=== PATIENT | male | born 1990 | race Caucasian/White ===

== ENCOUNTER 2019-01-18 08:41 | Emergency (ER) | payer MEDICAID ==
[~2019-01-18] VITALS: Ht 180.3 cm; Wt 96.6 kg
[~2019-01-18 08:41] MED LIST: ACET500C5 PO; BEN25 PO; CEPH-443 PO; IBUP800T48 PO; LORA10TA3 PO; SULF1TAB31 PO
[2019-01-18 08:46] VITALS: BP 149/71; PULSE 99; RESP 17; Ht 180.3 cm; Wt 96.6 kg
[2019-01-18] MEDS ORDERED: TRAM50TA2 PO (09:55)
[2019-01-18] MEDS ORDERED: ONDA4TAB8 PO (09:55)
--- NOTE | 2019-01-18 09:59 | ERD ---
ER Documentation Chief Complaint Chief Complaint head/neck pain with vision changes x 4 days post slip/fall b -ko HPI 28-year-old male with no reported past medical or surgical history presents with head and neck pain and CHRISTIANSON over the past 4 days. States on Thursday he was working on a car with his family member when the smart of the car slipped. He was able to get away from the falling smart of the but slipped backwards hitting the back of his head. States had a small bump to the back of the head at the time but denies LOC. Had a single episode of vomiting 1 hour after the incident but no vomiting since that time but still with intermittent nausea which has improved. States he has a little bit of photophobia which is improved over the past couple of days. Has had intermittent dizziness especially going from sitti ng to standing position. He otherwise denies worsening headache, further episodes of vomiting, blurry vision, chest pain, shortness of breath. He is most concerned about the nausea. Asking for a letter for his job. At time of evaluation patient is alert and oriented x3 and neurovascularly intact. ROS All systems reviewed and are negative except as per history of present illness. Medications Home Meds Active Scripts Acetaminophen* (Tylophen*) 500 Mg Capsule, 1 CAP PO Q6H PRN for PAIN AND OR ELEVATED TEMP, #20 CAP Prov:NIA GARSIA-C 01/18/19 Ondansetron Hcl* (Zofran*) 4 Mg Tablet, 4 MG PO Q6H for NAUSEA AND/OR VOMITING, #30 TAB Prov:NIA GARSIA-C 01/18/19 Acetaminophen* (Tylophen*) 500 Mg Capsule, 1 CAP PO Q6H PRN for PAIN AND OR ELEVATED TEMP, #20 CAP Prov:PASILABAN,KLAR F 10/16/17 Ibuprofen* (Motrin*) 800 Mg Tab, 800 MG PO Q8 PRN for PAIN AND OR ELEVATED TEMP, #30 TAB Prov:PASILABAN,AUGIEAR F 10/16/17 Diphenhydramine Hcl* (Benadryl*) 25 Mg Cap, 25 MG PO Q6 PRN for ITCHING/RASH, # 30 TAB Prov:PASILABAN,KLAR F 10/16/17 Loratadine* (Loratadine*) 10 Mg Tablet, 10 MG PO DAILY, #30 TAB Prov:PASILABAN,KLAR F 10/16/17 Sulfamethoxazole/Trimethoprim* (Bactrim Ds* Tablet) 1 Each Tablet, 1 TAB PO BID, #14 TAB Prov:MILLIE RENO 10/16/17 Cephalexin* (Keflex*) 500 Mg Capsule, 500 MG PO TID for 7 Days, CAP Prov:MILLIE RENO 10/16/17 Discontinued Scripts Tramadol HCl (Tramadol HCl) 50 Mg Tablet, 50 MG PO Q6 PRN for PAIN, #20 TAB Prov:NIA GARSIA PA-C 01/18/19 Allergies Allergies: Coded Allergies: No Known Allergy (Unverified , 10/16/17) PMhx/Soc History of Surgery: No Hx Neurological Disorder: No Hx Respiratory Disorders: No Hx Cardiac Disorders: No Hx Psychiatric Problems: Yes (anxiety and depression) Hx Miscellaneous Medical Probl: No Hx Alcohol Use: Yes Hx Substance Use: Yes Hx Tobacco Use: Yes Smoking Status: Never smoker FmHx Family History: No diabetes, No coronary disease, No other Physical Exam Vitals Vital Signs Date Temp Pulse Resp B/P (MAP) Pulse Ox O2 O2 Flow FiO2 Time Delivery Rate 01/18/19 98.2 99 17 149/71 98 08:46 (97) Physical Exam I have reviewed the triage vital signs. Const: Well nourished, well developed, appears stated age Eyes: PERRL, no conjunctival injection HENT: NCAT, Neck supple without meningismus CV: RRR, Warm, well-perfused extremities RESP: CTAB, Unlabored respiratory effort GI: soft, non-tender, non-distended, no masses MSK: No gross deformities appreciated. Normal gait and coordination Skin: Warm, dry. No rashes Neuro: grossly non focal Psych: Appropriate mood and affect. Procedures/MDM 28-year-old male presents with symptoms consistent with concussion. He has no red flag symptoms which would warrant further emergent neurological or other medical workup. He is alert and oriented and appropriate with a reassuring logical exam. He likely needs symptomatic management for postconcussive symptoms. Patient has been given instructions on symptomatic management of postconcussive symptoms. He is stable for discharge with appropriate outpatient follow-up. Plan: Zofran, Tylenol for pain DISPOSITION PLAN: We discussed follow up with the patient's primary care doctor within 24 to 48 hours. Patient counseled regarding my diagnostic impression and care plan. Prior to discharge all questions answered. Pt agrees with treatment plan and unders tands strict return precautions. Precautionary instructions provided including instructions to return to the ER if not improving or for any worsening or changing symptoms or concerns. Departure Diagnosis: Primary Impression: Concussion Additional Impression: Acute headache Condition: Stable Patient Instructions: After a Concussion, Concussion Additional Instructions: Call your primary care doctor TOMORROW for an appointment during the next 2-3 days.See the doctor sooner or return here if your condition worsens before your appointment time. NIA GARSIA PA-C Jan 18, 2019 09:59
[2019-01-18] MEDS ORDERED: ACET500C5 PO (10:01)
== END 2019-01-18 10:48 | disposition home or self-care (01) ==
LOC: FTE 08:41
DX: S06.0X0A Concussion without loss of consciousness, initial encounter (principal); W20.8XXA Other cause of strike by thrown, projected or falling object, initial encounter; Y92.9 Unspecified place or not applicable; Z87.891 Personal history of nicotine dependence
CPT/HCPCS: 99283

== ENCOUNTER 2019-01-29 09:31 | Emergency (ER) | payer MEDICAID ==
[~2019-01-29] VITALS: Ht 180.3 cm; Wt 98.1 kg
[~2019-01-29 09:31] MED LIST changes: +ONDA4TAB8 PO
[2019-01-29 09:38] VITALS: Ht 180.3 cm; Wt 98.1 kg
[2019-01-29] MEDS ORDERED: ONDANSETRON (ODT) 4 MG TAB ODT STA (10:38)
[2019-01-29] MEDS ORDERED: ACETAMINOPHEN 325 MG TAB PO ONE (11:00)
[2019-01-29] MEDS ORDERED: LORAZEPAM 1 MG TAB PO ONE (13:30)
[2019-01-29 13:35] VITALS: BP 155/89; PULSE 91; RESP 20
--- NOTE | 2019-02-04 17:06 | ERD ---
ER Documentation Chief Complaint Chief Complaint C/O DIZZINESS , BLURRY VISION S/P FALL X 2 WEEKS AGO HPI 28-year-old male patient with no significant past medical history presents to the ED complaining of dizziness, blurry vision, 2 weeks ago after having a head injury. States that he was working on his car, stepped back and fell backwards, hitting his head on concrete. Reports that he felt like he had lost consciousness. States that he now has blurry vision. Denies wearing any new glasses or contacts. Patient also requesting for his anxiety medications. Denies any wheezing, chest pain, fever, neck stiffness. ROS All systems reviewed and are negative except as per history of present illness. Medications Home Meds Active Scripts Acetaminophen* (Tylophen*) 500 Mg Capsule, 1 CAP PO Q6H PRN for PAIN AND OR ELEVATED TEMP, #20 CAP Prov:NIA GARSIA-C 01/18/19 Ondansetron Hcl* (Zofran*) 4 Mg Tablet, 4 MG PO Q6H for NAUSEA AND/OR VOMITING, #30 TAB Prov:NIA GARSIA PA-C 01/18/19 Acetaminophen* (Tylophen*) 500 Mg Capsule, 1 CAP PO Q6H PRN for PAIN AND OR ELEVATED TEMP, #20 CAP Prov:MILLIE RENO 10/16/17 Ibuprofen* (Motrin*) 800 Mg Tab, 800 MG PO Q8 PRN for PAIN AND OR ELEVATED TEMP, #30 TAB Prov:PASILAMILLIE LR F 10/16/17 Diphenhydramine Hcl* (Benadryl*) 25 Mg Cap, 25 MG PO Q6 PRN for ITCHING/RASH, #30 TAB Prov:PASMILLIE HARO 10/16/17 Loratadine* (Loratadine*) 10 Mg Tablet, 10 MG PO DAILY, #30 TAB Prov:PASILAMILLIE LR 10/16/17 Sulfamethoxazole/Trimethoprim* (Bactrim Ds* Tablet) 1 Each Tablet, 1 TAB PO BID, #14 TAB Prov:PASILAMILLIE LR F 10/16/17 Cephalexin* (Keflex*) 500 Mg Capsule, 500 MG PO TID for 7 Days, CAP Prov:PASILAMILLIE LR F 10/16/17 Allergies Allergies: Coded Allergies: No Known Allergy (Unverified , 10/16/17) PMhx/Soc Medical and Surgical Hx: pt denies Surgical Hx History of Surgery: No Hx Neurological Disorder: No Hx Respiratory Disorders: No Hx Cardiac Disorders: No Hx Psychiatric Problems: Yes (anxiety and depression) Hx Miscellaneous Medical Probl: No Hx Alcohol Use: Yes Hx Substance Use: Yes Hx Tobacco Use: Yes Smoking Status: Current every day smoker FmHx Family History: No diabetes, No coronary disease Physical Exam Vitals Temp: 98.1 Pulse: 87 SBP 154 DBP 94 Resp 18 O2 98 Physical Exam Const: [id number], well-nourished. In no acute distress. Head: Atraumatic, normocephalic Eyes: Normal Conjunctiva without injection ENT: Normal external ear, nose and mouth. Neck: Full range of motion. No meningismus. Resp: Clear to auscultation bilaterally. No wheezing, rhonchi, rales, or crackles. No accessory muscle use. No retractions. Cardio: Regular rate and rhythm, no murmurs Skin: No petechiae or rashes Back: No midline tenderness. No CVA tenderness. Ext: No cyanosis, or edema. Cap refill less than 2 seconds. Distal pulses intact bilaterally. Neur: Awake and alert. Normal gait and coordination. Muscle strength 5/5. Sensation intact bilaterally. Psych: Normal Mood and Affect Results 24 hrs Current Medications Medications Dose Sig/Kj Start Time Status Last (Trade) Ordered Route PRN Stop Time Admin Dose Reason Admin Ondansetron 4 mg ONCE STAT 01/29/19 DC 01/29/19 HCl (Zofran ODT 10:38 10:45 Odt) 01/29/19 10:40 650 mg ONCE ONCE 01/29/19 DC 01/29/19 Acetaminophen PO 11:00 10:45 (Tylenol 01/29/19 11:01 Tab) Lorazepam 1 mg ONCE ONCE 01/29/19 DC 01/29/19 (Ativan) PO 13:30 13:28 01/29/19 13:31 Procedures/MDM 28-year-old male patient with no significant past medical history presents ED complaining of dizziness, blurry vision status post after falling, 2 weeks ago. Patient is afebrile and nontoxic-appearing. CT brain and soft tissue ultrasound was ordered to further evaluate patient as well as ultrasound. IMPRESSION: Normal. IMPRESSION: No evidence of intracranial masses hemorrhages or midline shift. Visual acuity: Bilateral 20/100 L 20/100 R 20/70 Patient does not have any eye pain or redness. Strictly instructed patient to follow up with an heat treat operator within 24 hours. Low suspicion for intracranial bleed, subarachnoid hemorrhage, meningitis, TIA, stroke, subdural hematoma, epidural hematoma, or other emergent conditions. Patient's ocular symptoms have stabilized while they have been evaluated in the department and are appropriate for outpatient work up. Low suspicion for ruptured globe, retinal detachment, periorbital cellulitis, acute angle closure glaucoma, deep space infection, iritis, traumatic hyphema, conjunctivitis, subconjunctival hemorrhage, corneal abrasion, corneal ulcer, pterygium, hypopyon, blepharitis, hordeolum, chalazion, or other emergent conditions. Patient ordered Ativan here in the ED - patient requested for Xanax. I educated patient that Xanax is highly addictive. Patient has not taken this for months. High suspicion for drug seeking behavior. Diagnosis: Head Injury Discharge medications: Patient has a prescription for Zofran and Tylenol. Follow up with primary care physician in 1-2 days. Instructed patient to return to the ED sooner for any worsening symptoms. Patient's questions were answered. Patient is hemodynamically stable. Patient understood and agreed with discharge plan. Patient discharged stable. Disclaimer: Inadvertent spelling and grammatical errors are likely due to EHR/dictation software use and do not reflect on the overall quality of patient care. Also, please note that the electronic time recorded on this note does not necessarily reflect the actual time of the patient encounter. Departure Diagnosis: Primary Impression: Head injury Encounter type: initial encounter Qualified Codes: S09.90XA - Unspecified injury of head, initial encounter Condition: Stable Patient Instructions: Concussion in adults, Anxiety Reaction, Blurred Vision, HEAD INJURY, No Wake-Up (Adult) Referrals: COMM[facility] YOU HAVE RECEIVED A MEDICAL SCREENING EXAM AND THE RESULTS INDICATE THAT YOU DO NOT HAVE A CONDITION THAT REQUIRES URGENT TREATMENT IN THE EMERGENCY DEPARTMENT. FURTHER EVALUATION AND TREATMENT OF YOUR CONDITION CAN WAIT UNTIL YOU ARE SEEN IN YOUR DOCTORS OFFICE WITHIN THE NEXT 1-2 DAYS. IT IS YOUR RESPONSIBILITY TO MAKE AN APPOINTMENT FOR FOLOW-UP CARE. IF YOU HAVE A PRIMARY DOCTOR --you should call your primary doctor and schedule an appointment IF YOU DO NOT HAVE A PRIMARY DOCTOR YOU CAN CALL OUR PHYSICIAN REFERRAL HOTLINE AT IF YOU CAN NOT AFFORD TO SEE A PHYSICIAN YOU CAN CHOSE FROM THE FOLLOWING [facility] [address] [facility] [address] [facility] [address] [facility] [address] [facility] [address] [facility]. [facility] [address] [facility]. [facility] YOU HAVE RECEIVED A MEDICAL SCREENING EXAM AND THE RESULTS INDICATE THAT YOU DO NOT HAVE A CONDITION THAT REQUIRES URGENT TREATMENT IN THE EMERGENCY DEPARTMENT. FURTHER EVALUATION AND TREATMENT OF YOUR CONDITION CAN WAIT UNTIL YOU ARE SEEN IN YOUR DOCTORS OFFICE WITHIN THE NEXT 1-2 DAYS. IT IS YOUR RESPONSIBILITY TO MAKE AN APPOINTMENT FOR FOLOW-UP CARE. IF YOU HAVE A PRIMARY DOCTOR --you should call your primary doctor and schedule and appointment IF YOU DO NOT HAVE A PRIMARY DOCTOR YOU CAN CALL OUR PHYSICIAN REFERRAL HOTLINE AT . IF YOU CAN NOT AFFORD TO SEE A PHYSICIAN YOU CAN CHOSE FROM THE FOLLOWING [facility]: [facility] [address] [place] [address] [facility] [address] [place] [address] [facility] [address] [place] [address] [facility] Hours: Mon - Fri 9:00 AM - 5:00 PM Additional Instructions: Call your primary care doctor TOMORROW for an appointment during the next 2-3 days to see an opthalmologist.See the doctor sooner or return here if your condition worsens before your appointment time. LISA WARD PA-C February 04, 2019 17:06
== END 2019-01-29 13:36 | disposition home or self-care (01) ==
LOC: FTE 09:31
DX: S09.90XA Unspecified injury of head, initial encounter (principal); F17.210 Nicotine dependence, cigarettes, uncomplicated; R42 Dizziness and giddiness; W18.09XA Striking against other object with subsequent fall, initial encounter; Y92.89 Other specified places as the place of occurrence of the external cause
CPT/HCPCS: 70450; 76536; Z7610